=== PATIENT | female | born 1980 | race Caucasian/White ===

== ENCOUNTER → 2016-03-12 | Outpatient (CLI) | payer MEDICAID ==
[~2016-03-12] MED LIST: IBUP600T26 PO; IRON65TA PO; PERC5TAB6 PO; PREN1TAB11 PO; TYLE500T78 PO; VITAPRTA PO
[2016-03-12 12:09] LABS: BASO % 0.5 % (0.0-1.0); EOS # 0.2 K/mm3 (0.0-0.50); EOS % 2.9 % (0.0-3.0); LARGE UNSTAINED CELL # 0.1 K/mm3 (0.0-0.4); LARGE UNSTAINED CELL % 1.8 % (0.0-4.0); LYMPH % 32.9 % (24.0-44.0); MEAN CORPUSCULAR HEMOGLOBIN 24.6 pg (27.0-33.0); MEAN CORPUSCULAR VOLUME 79.2 fl (80.0-96.0); MONO # 0.3 K/mm3 (0.0-0.8); MONO % 5.6 % (0.0-5.0); NEUTROPHILS # 3.3 K/mm3 (1.8-7.7); NEUTROPHILS % 56.3 % (36.0-66.0); PLATELET COUNT, AUTOMATED 194 k/mm3 (150-450); WHITE BLOOD COUNT 5.9 K/mm3 (4.0-10.0)
[2016-03-12 13:56] LABS: CONTROL LINE INT CTR LINE PRESENT; HIV SCRN NEGATIVE (NEGATIVE); HIV SCRN1 NEGATIVE (NEGATIVE)
[2016-03-13 09:37] LABS: HBsAg Prenatal NEGATIVE (NEGATIVE)
== END ==
LOC: M LAB 11:08
PROVIDERS: ATTEND Advanced Practice Midwife
DX: Z34.81 Encounter for supervision of other normal pregnancy, first trimester (principal)

== ENCOUNTER → 2016-05-22 | Outpatient (CLI) | payer MEDICAID ==
--- NOTE | 2016-05-22 11:54 | REP ---
OBSTETRIC SONOGRAPHY: HISTORY: Supervision of for anatomy, closed cervical length. For obstetric history. FINDINGS: Scanning through the gravid uterus demonstrates a viable single intrauterine gestation in a cephalic lie. motion is observed and heart rate is recorder 150 beats per minute. Posterior grade 0 placenta is seen without evidence of previa. Amniotic fluid is subjectively normal. Closed cervical length is measured 5.6 cm trans vaginally . No extrauterine abnormality is observed. There is a suggestion of a small fibroid anteriorly in the uterine myometrium 1.5 x 1.2 x 0.8 cm in diameter. There is a anterior myometrial contraction seen during examination. The posterior placenta is seen extending to the internal cervical os on transvaginal imaging. No evidence of vasa previa . No anomaly is seen. The following anatomic structures were less than optimally visualized due to position: cerebellum and posterior fossa, face and profile, lungs, four-chamber heart with left and right ventricular outflow tract views, kidneys, spine. The following additional anatomic structures are identified and felt to be unremarkable: cranium, choroid plexus, cavum, diaphragm, left-sided stomach, abdominal wall cord insertion, three-vessel umbilical cord, urinary bladder, upper and lower extremities. Biometry Chart: BPD 3.3 cm = 16 weeks 3 days HC 11.9 cm = 15 week 6 days AC 10.6 cm = 16 weeks 4 days FL 1.9 cm = 15 weeks 4 days HL 2.0 cm = 15 week 6 days HC/AC ratio normal 1.12. Cephalic index normal 0.80. Estimated weight 142 grams, 0 pounds 5 ounces, 29th percentile for 16 weeks 3 days. IMPRESSION: 1. Viable single intrauterine gestation is 16 weeks 0 days by today's composite sonographic criteria. anatomic survey is incomplete due to lie and early gestational age. OLIVIA by today's sonography November 06, 2016. 2. Marginal posterior placenta previa configuration on transvaginal sonography. 3. 1.5 cm anterior uterine fibroid. Signed by Favian Copeland MD 05/22/2016 06:19 P
== END ==
LOC: M RAD 09:05
PROVIDERS: ATTEND Advanced Practice Midwife
DX: O09.291 Supervision of pregnancy with other poor reproductive or obstetric history, first trimester (principal)

== ENCOUNTER → 2016-06-05 | Outpatient (CLI) | payer MEDICAID ==
--- NOTE | 2016-06-05 17:06 | REP ---
Clinical: Anatomical evaluation. Comparison: 05/22/2016 . Findings: Examination demonstrates a single live intrauterine in cephalic presentation. motion is identified by technologist. Placenta is noted posteriorly and grade 0 without evidence for placenta previa or abruption and measures 2.6 cm from the internal os. Amniotic fluid volume is normal. Cervix measures 3.6 cm in length and appears closed. 1.4 cm anterior intramural fibroid is again identified and 4.6 cm posterior fibroid versus contraction is noted on current examination (likely contraction as this was not identified on prior exam). 14 x 7 x 15 mm hyperechoic area adjacent to the internal os may represent small clot. Gestational age by LMP 18 weeks 3 days with OLIVIA 11/03/2016 . Gestational age by current measurements 18 weeks 1 day with OLIVIA 11/05/2016 . FHR equals 163 beats per minute. BPD 3.8 cm 17 weeks 3 days HC 15.3 cm 18 weeks 2 days AC 12.8 cm 18 weeks 2 days FL 2.7 cm 18 weeks 2 days HL 2.6 cm 18 weeks 2 days HC/AC ratio 1.20 Estimated weight 233 grams ( 42nd percentile). Anatomical assessment demonstrates normal structures including cranium, choroid plexus, cavum, diaphragm, stomach, cord insertion/three-vessel cord, bladder, and spine. Limited evaluation of the posterior fossa, facial features, heart/ventricular outflow tracts, kidneys, and extremities due to positioning. Impression: 1. Single live intrauterine in cephalic presentation demonstrating appropriate interval growth. 2. Posterior placenta without evidence for placenta previa 2.6 cm from the closed internal os. 3. Cervix measures 3.6 cm in length. 4. Stable anterior fibroid and fibroid versus contraction noted posteriorly. 5. Anatomical assessment is suboptimal and requires reevaluation/follow-up. Signed by Ritchie Munroe MD 06/05/2016 04:57 P
== END ==
LOC: M RAD 15:38
PROVIDERS: ATTEND Advanced Practice Midwife
DX: O09.291 Supervision of pregnancy with other poor reproductive or obstetric history, first trimester (principal); Z3A.18 18 weeks gestation of pregnancy

== ENCOUNTER → 2016-06-20 | Outpatient (CLI) | payer OTHER ==
--- NOTE | 2016-06-20 12:19 | REP ---
OB ULTRASOUND: Real-time sonographic evaluation of the gravid uterus performed utilizing transabdominal and endovaginal technique. There is a single living intrauterine gestation with an estimated gestational age of 20 weeks 4 days, EDC 11/03/2016. Today's measurements indicate appropriate growth. Biometry and Growth: BPD 46 mm = 19 weeks 5 days, 28th percentile HC 181 mm = 23 weeks 3 days, 46th percentile AC 150 mm = 20 weeks 2 days, 42nd percentile FL 32 mm = 20 weeks 0 days, 37th percentile HC/AC ratio 1.20 within normal range. Estimated weight 338 grams 33rd percentile. SEEN/GROSSLY UNREMARKABLE Lateral ventricles Yes Posterior fossa Yes Upper lip Yes Four-chamber heart Yes LVOT Yes RVOT Yes Stomach Yes Cord insertion Yes Three vessel cord Yes Kidneys Yes Bladder Yes Spine No Cervical length: Closed and measures 3.7 cm in length. heart rate: 150 beats per minute. position: Variable. Placenta: Posterior and grade 0 with no previa or abruption. Amniotic fluid: Within normal limits. Signed by Alejandro Kapoor MD 06/20/2016 12:59 P
== END ==
LOC: M RAD 09:01
PROVIDERS: ATTEND Advanced Practice Midwife
DX: Z36 Encounter for antenatal screening of mother (principal); Z3A.20 20 weeks gestation of pregnancy

== ENCOUNTER → 2016-08-09 | Outpatient (CLI) | payer MEDICAID ==
[2016-08-09 09:41] LABS: MEAN CORPUSCULAR HEMOGLOBIN 26.8 pg (27.0-33.0); MEAN CORPUSCULAR HGB CONC 32.4 g/dl (32.0-36.5); MEAN CORPUSCULAR VOLUME 82.5 fl (80.0-96.0); RED CELL DISTRIBUTION WIDTH 15.2 % (11.5-14.5); WHITE BLOOD COUNT 12.6 K/mm3 (4.0-10.0)
== END ==
LOC: M LAB 09:14
PROVIDERS: ATTEND Advanced Practice Midwife
DX: Z34.82 Encounter for supervision of other normal pregnancy, second trimester (principal)

== ENCOUNTER → 2016-09-13 | Outpatient (CLI) | payer MEDICAID, OTHER ==
[~2016-09-13] MED LIST changes: +IBUP-1022 PO; -IBUP600T26 PO; +PERC5TAB12 PO; -PERC5TAB6 PO
--- NOTE | 2016-09-13 08:36 | REP ---
Clinical: Anatomical evaluation. Gestational diabetes. Comparison: 06/20/2016 . Findings: Examination demonstrates a single live intrauterine in cephalic presentation. motion is identified by technologist. Placenta is noted posteriorly and grade zero without evidence for placenta previa or abruption. Amniotic fluid volume is normal. No evidence for nuchal cord. Gestational age by LMP 32 weeks 5 days with OLIVIA 11/03/2016 . Gestational age by current measurements 32 weeks 4 days with OLIVIA 11/04/2016 . FHR equals 119 beats per minute. Estimated weight 2069 grams ( 47th percentile). Amniotic fluid index =12.6 cm (8.4 - 24.4). SD ratio 2.16 = (2.15 - 3.15). Anatomical assessment demonstrates normal structures including cranium, lungs, four-chamber heart/ left ventricular outflow tract, diaphragm, stomach, cord insertion/three-vessel cord, kidneys/bladder, spine, and extremities. Impression: 1. Single live advanced gestation in cephalic presentation demonstrating appropriate interval growth. 2. No gross abnormalities are identified. Signed by Ritchie Munroe MD 09/13/2016 08:27 A
== END ==
LOC: M RAD 06:27
PROVIDERS: ATTEND Obstetrics & Gynecology
DX: Z36 Encounter for antenatal screening of mother (principal); Z3A.32 32 weeks gestation of pregnancy

== ENCOUNTER → 2016-10-07 | Outpatient (REF) | payer OTHER | LOC: M LAB REF 17:15 | PROVIDERS: ATTEND Advanced Practice Midwife | DX: Z34.83 Encounter for supervision of other normal pregnancy, third trimester (principal) ==

== ENCOUNTER → 2016-10-09 | Outpatient (CLI) | payer OTHER ==
--- NOTE | 2016-10-09 10:05 | REP ---
LIMITED OB ULTRASOUND WITH BIOPHYSICAL PROFILE AND GROWTH: 10/09/2016. Comparison: 09/13/2016, 06/20/2016. Clinical history: Gestational diabetes. Based on initial scan she would be 36 weeks with , EDC 11/06/2016, by LMP EDC 11/03/2016. There is a single intrauterine gestation in vertex position with a closed 4.1 cm long cervix. There is a posterior grade 1 placenta without previa or abruption. The amniotic fluid volume is visually normal index measurement is 12 cm with a normal range 7.6 - 24.7. Largest of four fluid pockets is 3.5 cm. Mid cord umbilical artery Doppler shows resistive index of 0.53 and an S/D ratio with normal forward diastolic flow 2.14, normal. biometry: BPD 8.9 cm = 36 weeks HC 32.7 cm = 37 weeks 1 day AC 32.1 cm = 36 weeks FL 6.8 cm = 35 weeks 1 day HL 6 cm = 34 weeks 4 days This give the average ultrasound age 35 weeks 5 days with EDC 11/08/2016. Estimated weight 2799 grams or 6 pounds 2 ounces which is 44th percentile for dating based on LMP. This is normal interval growth. All measurement ratios are in the normal range. heart rate 144. Anatomy structures visible on this study include the cranial vault, lateral ventricles, choroid plexus and cavum septum pellucidum. The lungs, diaphragm, left-sided stomach bubble, three-vessel cord, kidneys, bladder and spine were also grossly unremarkable. All of the structures not seen have previously been evaluated. Biophysical profile Breathing 2. Movement 2. Tone 2. AFV 2. Impression: 1. Single intrauterine gestation in vertex presentation with a closed 4.1 cm long cervix, posterior grade 1 placenta without previa or abruption. This is a normal amniotic fluid volume and index. 2. Normal cord Doppler. 3. Normal interval growth with concordant size and dates. 4. Biophysical profile score 8/8. Signed by Ted Morgan MD 10/09/2016 07:03 P
== END ==
LOC: M RAD 07:21
PROVIDERS: ATTEND Advanced Practice Midwife
DX: Z36 Encounter for antenatal screening of mother (principal); O24.415 Gestational diabetes mellitus in pregnancy, controlled by oral hypoglycemic drugs; Z3A.35 35 weeks gestation of pregnancy

== ENCOUNTER → 2016-10-16 | Outpatient (CLI) | payer OTHER ==
--- NOTE | 2016-10-16 12:07 | REP ---
OB ULTRASOUND, BIOPHYSICAL PROFILE: Real-time sonographic evaluation of the gravid uterus is performed utilizing transabdominal technique. There is a single living intrauterine gestation. The estimated gestational age based on LMP is 37 weeks 5 days, EDC 11/01/2016. heart rate 153 beats per minute. Amniotic fluid within normal limits, SAMANTHA is 17.7 within normal range of 7.4 to 24.1. Biophysical profile score is 8 out of 8. S/D ratio is 1.64 within normal range. RI is 0.39 is below the normal range of 0.59 to 0.75. position vertex. Placenta is posterior with no previa or abruption and grade 1. IMPRESSION: Biophysical profile score 8 out of 8. Signed by Alejandro Kapoor MD 10/16/2016 04:57 P
== END ==
LOC: M RAD 10:04
PROVIDERS: ATTEND Advanced Practice Midwife
DX: O24.415 Gestational diabetes mellitus in pregnancy, controlled by oral hypoglycemic drugs (principal); O09.291 Supervision of pregnancy with other poor reproductive or obstetric history, first trimester; Z3A.37 37 weeks gestation of pregnancy

== ENCOUNTER 2016-10-18 05:44 | Inpatient (IN) | payer OTHER ==
[2016-10-18] VITALS (26 sets, daily range): BP systolic 102–149; BP diastolic 55–87
[~2016-10-18] VITALS: Ht 167.6 cm; Wt 106.0 kg
[2016-10-18] MEDS ORDERED: PENICILLIN G POTASSIUM IV 5 MU in D5W MINI-BAG PLUS 100 ML IV STA (06:19)
[2016-10-18] MEDS ORDERED: LR 1,000 ML IV SCH (06:22)
[2016-10-18] MEDS ORDERED: OXYTOCIN DRIP 30 UNITS in APPROPRIATE DILUENT 1 EA IV SCH (06:30)
[2016-10-18 06:58] LABS: MEAN CORPUSCULAR HEMOGLOBIN 23.6 pg (27.0-33.0); MEAN CORPUSCULAR HGB CONC 31.5 g/dl (32.0-36.5); MEAN CORPUSCULAR VOLUME 74.9 fl (80.0-96.0); RED CELL DISTRIBUTION WIDTH 16.1 % (11.5-14.5); WHITE BLOOD COUNT 8.8 K/mm3 (4.0-10.0)
--- NOTE | 2016-10-18 08:06 | HPE ---
DATE OF ADMISSION: 10/18/2016 HISTORY OF PRESENT ILLNESS: A 36-year-old 4, para 2-0-1-2 female at 37 and 5/7 weeks gestation by last menstrual period (LMP) consistent with seven-week ultrasound, estimated date of confinement (EDC) 11/03/2016, who presents with a gush of bloody fluid at 5 a.m. on the morning of admission. She continued to leak bloody fluid and made her way to the hospital. Contractions are mild. movement has been decreased over the last several days, and has remained unchanged. COURSE: The patient initiated care at seven weeks gestation on 03/21/2016. Her first-trimester blood pressure was 118/80, weight 223 pounds. She started [place] injections during due to a history of previable labor with her prior . She was diagnosed with gestational diabetes and was treated with metformin 500 mg daily. OBSTETRICAL HISTORY: 1. August 1999, 40-week vaginal delivery of 7 pound 12 ounce female . 2. 2000, 40-week vaginal delivery of 8 pound 2 ounce male. 3. 2015, 18-week vaginal delivery premature rupture of membranes (p-PROM). MEDICAL HISTORY: Obesity. SURGICAL HISTORY: 1. Gastric bypass 2011. 2. Laparoscopic ovarian cystectomy in 2016, during . ALLERGIES: None. SOCIAL HISTORY: The patient is . She denies cigarettes, alcohol or drug use. Lives in [place]. FAMILY HISTORY: Noncontributory. PHYSICAL EXAMINATION: VITAL SIGNS: 128/80, pulse 80, weight 242 pounds. GENERAL: She is in no apparent distress. HEAD/NECK: Exam normal. LUNGS: Clear. HEART: Regular rate and rhythm. ABDOMEN: Nontender. Gravid. heart tones are category one. Contractions are irregular. STERILE VAGINAL EXAM: She is grossly ruptured with bloody fluid present. She is positive Nitrazine and positive ferning. She is 4 cm, 80% effaced, -1 station, vertex. EXTREMITIES: Nontender. LABORATORY DATA: Blood type A positive. Rubella immune, RPR nonreactive. Hepatitis B and C negative. HIV negative. GBS positive. ASSESSMENT: A 36-year-old 4, para 2-0-1-2 female at 37 and 5/7 weeks gestation, with gestational diabetes, presents with spontaneous rupture of membranes, large amount of blood mixed with amniotic fluid and suggestive of possible placental abruption. PLAN: Admit for labor augmentation as well as antibiotics for group B streptococcus (GBS) positive status.
[2016-10-18] MEDS ORDERED: FENTANYL 2MCG/ML ROPIVACAINE 0.2% IN 0.9% NACL 200ML IVBAG As Ordered ONE (08:13)
[2016-10-18] MEDS ORDERED: NALOXONE INJ 0.4 MG/1 ML VIAL (J2310) IV PRN (09:30)
[2016-10-18] MEDS ORDERED: EPIDURAL/PCA KEYS XX PRN (09:30)
[2016-10-18] MEDS ORDERED: ONDANSETRON 4MG/2ML VIAL (J2405) IV PRN (09:30)
[2016-10-18] MEDS ORDERED: LACTATED RINGER'S 1000 ML IV PRN (09:30)
[2016-10-18] MEDS ORDERED: FENTANYL/ROPIVACAINE/NACL BAG 200 ML EPIDURAL SCH (09:30)
[2016-10-18] MEDS ORDERED: EPIDURAL COMMENT XX SCH (09:30)
[2016-10-18] MEDS ORDERED: diphenhydrAMINE INJ 50MG/ML VIAL (J1200) IV PRN (09:30)
[2016-10-18] MEDS ORDERED: REFRIGERATOR IV KEYS XX PRN (09:30)
[2016-10-18] MEDS ORDERED: ePHEDrine SULFATE 25 MG/5 ML(5MG/ML) SYRINGE IV PRN (09:30)
[2016-10-18] MEDS ORDERED: DIBUCAINE 1% OINTMENT 30GM TOP PRN (10:45)
[2016-10-18] MEDS ORDERED: ANUSOL HC CREAM 30GM TOP PRN (10:45)
[2016-10-18] MEDS ORDERED: MEASLES,MUMPS,RUBELLA VACCINE INJ (MMR-II) (90707) SC SCH (10:45)
[2016-10-18] MEDS ORDERED: DOCUSATE SODIUM 100 MG CAP PO PRN (10:45)
[2016-10-18] MEDS ORDERED: MOM 30ML SUSPENSION UDC PO PRN (10:45)
[2016-10-18] MEDS ORDERED: RHOGAM 300 MCG (1500 IU) INJ (J2790) IM SCH (10:45)
[2016-10-18] MEDS: IBUPROFEN 800 MG TAB PO PRN ×2 (10:59→20:16)
[2016-10-18] MEDS ORDERED: PENICILLIN G POTASSIUM IV 2.5 MU in D5W 100 ML IV SCH (11:00)
[2016-10-18] MEDS: PRENATAL VITAMINS CHEWABLE TABLET PO SCH (11:01)
[2016-10-18] MEDS: METHYLERGONOVINE MALEATE 0.2 MG TAB PO SCH ×3 (11:02→23:01)
[2016-10-18] MEDS: ACETAMINOPHEN 500 MG TAB PO PRN (20:16)
[2016-10-19] MEDS: METHYLERGONOVINE MALEATE 0.2 MG TAB PO SCH ×3 (05:00→16:45)
[2016-10-19 06:30] VITALS: BP 136/74
[2016-10-19] MEDS: IBUPROFEN 800 MG TAB PO PRN (07:02)
[2016-10-19] MEDS: ACETAMINOPHEN 500 MG TAB PO PRN (07:02)
[2016-10-19 07:15] LABS: MEAN CORPUSCULAR HEMOGLOBIN 23.6 pg (27.0-33.0); MEAN CORPUSCULAR HGB CONC 31.3 g/dl (32.0-36.5); MEAN CORPUSCULAR VOLUME 75.2 fl (80.0-96.0); RED CELL DISTRIBUTION WIDTH 16.3 % (11.5-14.5); WHITE BLOOD COUNT 10.2 K/mm3 (4.0-10.0)
[2016-10-19] MEDS: PRENATAL VITAMINS CHEWABLE TABLET PO SCH (08:39)
--- NOTE | 2016-10-19 13:24 | DN ---
DATE: 10/18/2016 Spontaneous rupture of membranes, bloody fluid at 0500 hours. Pitocin augmentation of labor. Utilized epidural for labor coping. Fully dilated 1004 hours. Large amount of bleeding during second stage. heart remained reassuring. Viable male delivered RAJEEV at 1018. Spontaneous respirations with stimulation. Transitioned on maternal abdomen. Cord doubly clamped and cut by dad once pulsations ceased. scores of 9 and 9. Placenta Santos intact with three-vessel cord at 1022. Membranes had completely shredded off the placental disk prior to delivery. Placenta and membranes sent to pathology. Fundus firmed with massage and IV Pitocin. Estimated blood loss 600 mL. Perineum intact. , 3430 grams, 7 pounds 9 ounces. Sponge, sharp and instrument count correct. Mother and baby doing well.
[2016-10-19 18:01] VITALS: BP 132/67
[2016-10-19] MEDS ORDERED: METHYLERGONOVINE MALEATE 0.2 MG TAB PO PRN (20:00)
[2016-10-20 06:15] VITALS: BP 119/69
[2016-10-20] MEDS: IBUPROFEN 800 MG TAB PO PRN (06:21)
[2016-10-20] MEDS: PRENATAL VITAMINS CHEWABLE TABLET PO SCH (08:27)
== END 2016-10-20 14:00 | disposition home or self-care (01) | DRG 560 ==
LOC: M LDO 05:44 → M LDI 06:15 → M OBS 13:14
PROVIDERS: ADMIT Specialist; ATTEND Specialist
PROC: 10E0XZZ Delivery of Products of Conception, External Approach (ICD-10-PCS; principal; 2016-10-18)
DX: O24.425 Gestational diabetes mellitus in childbirth, controlled by oral hypoglycemic drugs (principal); E66.9 Obesity, unspecified; Z37.0 Single live birth; Z3A.37 37 weeks gestation of pregnancy; Z87.51 Personal history of pre-term labor; O99.820 Streptococcus B carrier state complicating pregnancy; O99.214 Obesity complicating childbirth; O09.523 Supervision of elderly multigravida, third trimester

== ENCOUNTER → 2017-04-03 | Outpatient (CLI) | payer OTHER | LOC: M OUTALCOH 10:16 | DX: Z03.89 Encounter for observation for other suspected diseases and conditions ruled out (principal) ==

== ENCOUNTER → 2018-01-13 | Outpatient (REF) | payer BC ==
[2018-01-14 11:42] LABS: BASO # 0.1 10^3/uL (0.0-0.2); BASO % 0.5 % (0.0-1.0); EOS # 0.2 10^3/uL (0.0-0.50); EOS % 1.6 % (0.0-3.0); HEMATOCRIT 33.4 % (36.0-47.0); HEMOGLOBIN 9.4 g/dl (12.0-15.5); IMMATURE GRANULOCYTE % 0.3 % (0-3.0); LYMPH # 2.7 10^3/uL (1.5-4.5); LYMPH % 23.5 % (24.0-44.0); MEAN CORPUSCULAR HGB CONC 28.1 g/dl (32.0-36.5); MEAN CORPUSCULAR VOLUME 71.2 fl (80.0-96.0); MONO # 0.6 10^3/uL (0.0-0.8); MONO % 4.9 % (0.0-5.0); NEUTROPHILS % 69.2 % (36.0-66.0); PLATELET COUNT, AUTOMATED 280 10^3/uL (150-450); RED BLOOD COUNT 4.69 10^6/uL (4.00-5.40); RED CELL DISTRIBUTION WIDTH 16.2 % (11.5-14.5); WHITE BLOOD COUNT 11.5 10^3/uL (4.0-10.0)
[2018-01-14 12:03] LABS: ERYTHROCYTE SEDIMENTATION RATE 36 mm/hr (0-20)
[2018-01-14 12:07] LABS: ALBUMIN 3.9 GM/DL (3.2-5.2); ALBUMIN/GLOBULIN RATIO 1.08 (1.00-1.93); ALKALINE PHOSPHATASE 116 U/L (45-117); ALT/SGPT 21 U/L (12-78); ANION GAP 7 MEQ/L (8-16); AST/SGOT 17 U/L (7-37); BILIRUBIN,TOTAL 0.2 MG/DL (0.2-1.0); BLOOD UREA NITROGEN 15 MG/DL (7-18); CALCIUM LEVEL 8.7 MG/DL (8.5-10.1); CARBON DIOXIDE LEVEL 27 MEQ/L (21-32); CHLORIDE LEVEL 106 MEQ/L (98-107); CHOLESTEROL LEVEL 154 MG/DL (<200); CHOLESTEROL RISK RATIO 3.208 (<5); CREATININE FOR GFR 0.68 MG/DL (0.55-1.30); FERRITIN 3 NG/ML (8-252); FOLATE 12.5 NG/ML (>5.4); GLOMERULAR FILTRATION RATE > 60.0 (>60); GLUCOSE, FASTING 147 MG/DL (70-100); HDL CHOLESTEROL 48 MG/DL (>40); IRON (FE) 18 UG/DL (50-170); LDL CHOLESTEROL 91 MG/DL (<100); MAGNESIUM LEVEL 2.1 MG/DL (1.8-2.4); NON-HDL-C 106 MG/DL; PERCENT SATURATION 3.2 % (13.2-45.0); POTASSIUM SERUM 4.3 MEQ/L (3.5-5.1); RHEUMATOID FACTOR QUANT < 10.0 IU/ML (<15.0); SODIUM LEVEL 140 MEQ/L (136-145); TOTAL 25(OH) VITAMIN D 11.3 NG/ML (30.0-100.0); TOTAL IRON BINDING CAPACITY 558 UG/DL (250-450); TOTAL PROTEIN 7.5 GM/DL (6.4-8.2); TRIGLYCERIDES LEVEL 77 MG/DL (<150); VITAMIN B12 LEVEL 724 PG/ML (247-911)
[2018-01-14 12:08] LABS: FREE THYROXINE INDEX 2.2 % (1.3-4.8); T UPTAKE 31 % (30-39); THYROXINE (T4) 7.2 UG/DL (4.5-12.0)
[2018-01-16 00:07] LABS: ANA (HEP2) Negative (.); Lyme Disease IgG/IgM Antibodie <0.91 ISR (0.00-0.90); Lyme Disease IgM Ab Quantitati <0.80 index (0.00-0.79)
== END ==
LOC: M SFHCCLAY 14:28
DX: Z98.84 Bariatric surgery status (principal); G56.03 Carpal tunnel syndrome, bilateral upper limbs; Z13.6 Encounter for screening for cardiovascular disorders
CPT/HCPCS: 82746

== ENCOUNTER → 2018-02-26 | Outpatient (REF) | payer BC ==
[2018-02-26 11:36] LABS: HEMOGLOBIN 8.7 g/dl (12.0-15.5); MEAN CORPUSCULAR HEMOGLOBIN 19.5 pg (27.0-33.0); MEAN CORPUSCULAR HGB CONC 27.2 g/dl (32.0-36.5); MEAN CORPUSCULAR VOLUME 71.6 fl (80.0-96.0); PLATELET COUNT, AUTOMATED 245 10^3/uL (150-450); RED BLOOD COUNT 4.47 10^6/uL (4.00-5.40); WHITE BLOOD COUNT 7.1 10^3/uL (4.0-10.0)
[2018-02-26 11:51] LABS: HEMOGLOBIN A1c 7.9 %
[2018-02-26 12:04] LABS: PERCENT SATURATION 4.3 % (13.2-45.0)
== END ==
LOC: M SFHCCLAY 07:40
PROVIDERS: ATTEND Nurse Practitioner Family
DX: D64.9 Anemia, unspecified (principal); R73.09 Other abnormal glucose

== ENCOUNTER → 2019-06-14 | Outpatient (REF) | payer BC ==
[2019-06-14 14:01] LABS: HEMATOCRIT 40.9 % (36.0-47.0); HEMOGLOBIN 12.5 g/dl (12.0-15.5); MEAN CORPUSCULAR HEMOGLOBIN 23.9 pg (27.0-33.0); MEAN CORPUSCULAR HGB CONC 30.6 g/dl (32.0-36.5); MEAN CORPUSCULAR VOLUME 78.4 fl (80.0-96.0); PLATELET COUNT, AUTOMATED 259 10^3/uL (150-450); RED BLOOD COUNT 5.22 10^6/uL (4.00-5.40); WHITE BLOOD COUNT 7.4 10^3/uL (4.0-10.0)
[2019-06-14 14:04] LABS: IRON (FE) 24 UG/DL (50-170)
[2019-06-14 14:15] LABS: TOTAL 25(OH) VITAMIN D 13.3 NG/ML (30.0-100.0)
[2019-06-14 14:16] LABS: VITAMIN B12 LEVEL 715 PG/ML (247-911)
[2019-06-14 14:18] LABS: FOLATE 21.7 NG/ML (>5.4)
[2019-06-14 14:26] LABS: RUBELLA IgG QUALITATIVE IMMUNE (IMMUNE)
[2019-06-14 14:27] LABS: HEPATITIS B SURFACE ANTIGEN NEGATIVE (NEGATIVE)
[2019-06-14 14:54] LABS: HEPATITIS C VIRUS ABY INDEX 0.1 INDEX (<0.8)
[2019-06-14 14:55] LABS: HIV 1&2 SCREEN CENTAUR NEGATIVE (NEGATIVE)
[2019-06-15 13:09] LABS: CHLAMYDIA DNA AMPLIFICATION NEGATIVE (NEGATIVE); GC DNA AMPLIFICATION NEGATIVE (NEGATIVE)
== END ==
LOC: M PLALAB 08:41
PROVIDERS: ATTEND Advanced Practice Midwife
DX: O09.521 Supervision of elderly multigravida, first trimester (principal)

== ENCOUNTER → 2019-07-13 | Outpatient (REF) | payer BC ==
[2019-07-13 12:15] LABS: HEMOGLOBIN A1c 9.3 %
== END ==
LOC: M PLALAB 08:58
PROVIDERS: ATTEND Specialist
DX: E11.9 Type 2 diabetes mellitus without complications (principal)

== ENCOUNTER → 2020-01-11 | Outpatient (REF) | payer BC | LOC: M PLALAB 11:01 | PROVIDERS: ATTEND Specialist | DX: N92.6 Irregular menstruation, unspecified (principal) ==

== ENCOUNTER → 2020-01-13 | Outpatient (CLI) | payer BC | LOC: M PLALAB 09:24 | PROVIDERS: ATTEND Specialist | DX: N92.6 Irregular menstruation, unspecified (principal) ==

== ENCOUNTER → 2020-01-17 | Outpatient (REF) | payer BC | LOC: M PLALAB 08:18 | PROVIDERS: ATTEND Specialist | DX: N92.6 Irregular menstruation, unspecified (principal) ==

== ENCOUNTER → 2020-01-21 | Outpatient (REF) | payer BC | LOC: M PLALAB 12:38 | PROVIDERS: ATTEND Specialist | DX: N92.6 Irregular menstruation, unspecified (principal) ==

== ENCOUNTER 2022-10-03 09:18 | Outpatient (CLI) | payer OTHER ==
[~2022-10-03] VITALS: Ht 167.6 cm; Wt 93.4 kg
[~2022-10-03 09:18] MED LIST changes: +ACETAMINOPHEN 500 MG TAB PO ONE; +IRON SUCROSE 500 MG in NS 250 ML OVER 4 HRS IV ONE; +diphenhydrAMINE 50MG CAP PO ONE
[2022-10-03 09:30] VITALS: BP 117/65; O2SAT 99
[2022-10-03 10:30] VITALS: BP 109/61; O2SAT 98
[2022-10-03 11:30] VITALS: BP 105/59; O2SAT 98
[2022-10-03 13:50] VITALS: BP 145/82; O2SAT 98
== END 2022-10-03 14:00 | disposition home or self-care (01) ==
LOC: M INFU 09:18
PROVIDERS: ATTEND Advanced Practice Midwife
DX: D64.9 Anemia, unspecified (principal)
CPT/HCPCS: 96365; 96366; J1756

== ENCOUNTER → 2022-10-14 | Outpatient (REF) | payer OTHER ==
[~2022-10-14] MED LIST changes: -ACETAMINOPHEN 500 MG TAB PO ONE; -IRON SUCROSE 500 MG in NS 250 ML OVER 4 HRS IV ONE; -diphenhydrAMINE 50MG CAP PO ONE
== END ==
LOC: M PLALAB 13:27
PROVIDERS: ATTEND Obstetrics & Gynecology
DX: O09.521 Supervision of elderly multigravida, first trimester (principal); Z3A.00 Weeks of gestation of pregnancy not specified

== ENCOUNTER 2022-11-01 09:44 | Observation (INO) | payer OTHER ==
[2022-11-01] VITALS (9 sets, daily range): BP systolic 117–138; BP diastolic 55–76; TEMP 98; O2SAT 97
[~2022-11-01] VITALS: Ht 167.6 cm; Wt 94.5 kg
[2022-11-01] MEDS ORDERED: INSUR50VL SC ×2 (10:11→10:14)
[2022-11-01] MEDS ORDERED: NOVOINJ13 SC ×3 (10:14)
[2022-11-01] MEDS ORDERED: HOME MED LIST COMPLETE! XX SCH (10:15)
[2022-11-01] MEDS ORDERED: RHOGAM 300MCG (1500IU) INJ IM SCH (10:20)
[2022-11-01] MEDS ORDERED: INSURSD SC (10:22)
[2022-11-01] MEDS ORDERED: ACETAMINOPHEN 500 MG TAB PO PRN (11:05)
[2022-11-01 12:34] LABS: HEMATOCRIT 36.4 % (36.0-47.0); MEAN CORPUSCULAR HEMOGLOBIN 22.4 pg (27.0-33.0); MEAN CORPUSCULAR HGB CONC 30.2 g/dl (32.0-36.5); MEAN CORPUSCULAR VOLUME 74.1 fl (80.0-96.0); PLATELET COUNT, AUTOMATED 206 10^3/uL (150-450); RED BLOOD COUNT 4.91 10^6/uL (4.00-5.40); WHITE BLOOD COUNT 18.5 10^3/uL (4.0-10.0)
[2022-11-01] MEDS ORDERED: AMPICILLIN SOD/SULBACTAM SOD 3 GM in D5W MINI-BAG PLUS 100 ML IV ONE (16:25)
[2022-11-01] MEDS ORDERED: fentaNYL 100 MCG/2 ML INJECTION IV PRN (16:40)
[2022-11-01] MEDS ORDERED: ONDANSETRON 4MG 2ML VIAL IV PRN (16:40)
[2022-11-01] MEDS ORDERED: MEPERIDINE 25 MG/ML 1ML VIAL IV PRN (16:40)
[2022-11-01] MEDS ORDERED: oxyCODONE 5MG TAB PO PRN (16:40)
[2022-11-01] MEDS ORDERED: HYDROMORPHONE HCL 0.5 MG/ 0.5 ML SYRINGE IV PRN (16:40)
[2022-11-01] MEDS ORDERED: LIDOCAINE 1% SDV 30ML VIAL As Ordered ONE (16:58)
[2022-11-01] MEDS ORDERED: fentaNYL 100 MCG/2 ML INJECTION As Ordered ONE (17:02)
[2022-11-01] MEDS ORDERED: MIDAZOLAM INJ 2MG/2ML VIAL As Ordered ONE (17:02)
[2022-11-01] MEDS ORDERED: propofoL 200 MG/20 ML VIAL As Ordered ONE (17:03)
[2022-11-01] MEDS ORDERED: ONDANSETRON 4MG 2ML VIAL As Ordered ONE (17:04)
[2022-11-01] MEDS ORDERED: LIDOCAINE 2% 100MG/5ML SDV (FOR ANES.) As Ordered ONE (17:04)
[2022-11-01] MEDS ORDERED: ACETAMINOPHEN 1000MG 100ML IV BAG As Ordered ONE (17:53)
[2022-11-01] MEDS ORDERED: KETOROLAC 60MG 2ML VIAL As Ordered ONE (17:54)
[2022-11-01] MEDS ORDERED: METHYLERGONOVINE MALEATE 0.2MG/ML 1ML VIAL As Ordered ONE (17:58)
== END 2022-11-01 20:30 | disposition home or self-care (01) ==
LOC: M LDO 09:44 → M LDI 09:45
PROVIDERS: ADMIT Advanced Practice Midwife; ATTEND Advanced Practice Midwife
DX: O73.0 Retained placenta without hemorrhage (principal); O02.1 Missed abortion; E11.9 Type 2 diabetes mellitus without complications; Z98.84 Bariatric surgery status
CPT/HCPCS: 59812; 76856; 81229; 85027; 86850; 86900; 86901; 87635; 88300; 96374; G0463; J0131; J0295; J1100; J1885; J2210; J2250; J2405; J3010; S0191

== ENCOUNTER → 2023-07-30 | Outpatient (REF) | payer OTHER ==
[~2023-07-30] MED LIST changes: +INSU100V19 SC; +INSUR50VL SC; +NOVOINJ13 SC
[2023-07-30 17:22] LABS: IRON (FE) 9 UG/DL (50-170); PERCENT SATURATION 2.3 % (13.2-45.0); TOTAL IRON BINDING CAPACITY 392 UG/DL (250-425)
[2023-07-30 17:33] LABS: VITAMIN B12 LEVEL > 2000 PG/ML (211-911)
[2023-07-30 17:44] LABS: ALBUMIN 3.2 G/DL (3.2-5.2); ALKALINE PHOSPHATASE 84 U/L (46-116); ALT/SGPT 32 U/L (7.0-40); AST/SGOT 27 U/L (<34); BILIRUBIN,TOTAL 0.5 MG/DL (0.3-1.2); BLOOD UREA NITROGEN 10 MG/DL (9-23); CALCIUM LEVEL 8.6 MG/DL (8.5-10.1); CARBON DIOXIDE LEVEL 27 MMOL/L (20-31); CHLORIDE LEVEL 103 MMOL/L (98-107); CHOLESTEROL LEVEL 119 MG/DL (<200); CHOLESTEROL RISK RATIO 3.15 (<5); CREATININE FOR GFR 0.55 MG/DL (0.55-1.30); GLOMERULAR FILTRATION RATE > 60.0 (>58); GLUCOSE, FASTING 331 MG/DL (60-100); HDL CHOLESTEROL 37.7 MG/DL (>40); LDL CHOLESTEROL 63.9 MG/DL (<100); NON-HDL-C 81.3 MG/DL; POTASSIUM SERUM 3.6 MMOL/L (3.5-5.1); SODIUM LEVEL 138 MMOL/L (136-145); TOTAL PROTEIN 6.3 G/DL (5.7-8.2); TRIGLYCERIDES LEVEL 87 MG/DL (<150)
[2023-07-30 17:49] LABS: THYROID STIMULATING HORMONE 0.523 uIU/ML (0.55-4.78)
[2023-07-30 17:50] LABS: FREE T4 0.83 NG/DL (0.89-1.76)
[2023-07-30 18:08] LABS: HEMOGLOBIN A1c 10.9 % (4.0-6.0)
== END ==
LOC: M SFHCCLAY 11:40
PROVIDERS: ATTEND Nurse Practitioner Family
DX: E11.9 Type 2 diabetes mellitus without complications (principal); Z98.84 Bariatric surgery status

== ENCOUNTER 2023-08-26 07:04 | Outpatient (CLI) | payer OTHER ==
[~2023-08-26] VITALS: Ht 167.6 cm; Wt 97.7 kg
[2023-08-26] MEDS: IRON SUCROSE 25 MG in NS 23.75 ML IV ONE (08:07)
[2023-08-26] MEDS: IRON SUCROSE 475 MG in NS 250 ML IV ONE (09:11)
[2023-08-26 10:00] VITALS: BP 137/66; O2SAT 100
[2023-08-26 11:00] VITALS: BP 135/65; O2SAT 100
[2023-08-26 12:00] VITALS: BP 140/77; O2SAT 100
== END 2023-08-26 13:40 ==
LOC: M INFU 07:04
PROVIDERS: ATTEND Nurse Practitioner Family
DX: D50.9 Iron deficiency anemia, unspecified (principal)
CPT/HCPCS: 96365; 96366; J1756

== ENCOUNTER 2023-09-09 08:30 | Outpatient (CLI) | payer OTHER ==
[~2023-09-09] VITALS: Ht 167.6 cm; Wt 97.7 kg
[2023-09-09 08:45] VITALS: BP 164/80; O2SAT 98
[2023-09-09] MEDS: IRON SUCROSE 500 MG in NS 250 ML OVER 4 HRS IV ONE (08:56)
[2023-09-09 10:30] VITALS: BP 141/68; O2SAT 98
[2023-09-09 11:30] VITALS: BP 147/77; O2SAT 98
[2023-09-09 12:30] VITALS: BP 144/71; O2SAT 99
[2023-09-09 13:00] VITALS: BP 141/75; O2SAT 97
== END 2023-09-09 13:00 ==
LOC: M INFU 08:30
PROVIDERS: ATTEND Nurse Practitioner Family
DX: D50.9 Iron deficiency anemia, unspecified (principal)
CPT/HCPCS: 96365; 96366; J1756

== ENCOUNTER → 2023-09-25 | Outpatient (REF) | payer OTHER ==
[2023-09-25 11:57] LABS: BASO # 0.1 10^3/uL (0.0-0.2); BASO % 0.9 % (0.0-1.0); EOS # 0.1 10^3/uL (0.0-0.5); EOS % 1.9 % (0.0-3.0); HEMATOCRIT 43.2 % (36.0-47.0); HEMOGLOBIN 12.7 g/dl (12.0-15.5); LYMPH # 1.6 10^3/uL (1.5-5.0); LYMPH % 29.5 % (24.0-44.0); MEAN CORPUSCULAR HEMOGLOBIN 24.1 pg (27.0-33.0); MEAN CORPUSCULAR HGB CONC 29.4 g/dl (32.0-36.5); MONO # 0.3 10^3/uL (0.0-0.8); MONO % 6.3 % (2.0-8.0); NEUTROPHILS # 3.2 10^3/uL (1.5-8.5); NEUTROPHILS % 61.2 % (36.0-66.0); PLATELET COUNT, AUTOMATED 238 10^3/uL (150-450); RED BLOOD COUNT 5.27 10^6/uL (4.00-5.40); WHITE BLOOD COUNT 5.3 10^3/uL (4.0-10.0)
[2023-09-25 12:24] LABS: ALBUMIN 3.6 G/DL (3.2-5.2); ALKALINE PHOSPHATASE 59 U/L (46-116); ALT/SGPT 83 U/L (7.0-40); AST/SGOT 113 U/L (<34); BILIRUBIN,TOTAL 0.4 MG/DL (0.3-1.2); BLOOD UREA NITROGEN 9 MG/DL (9-23); CALCIUM LEVEL 9.1 MG/DL (8.5-10.1); CARBON DIOXIDE LEVEL 28 MMOL/L (20-31); CHLORIDE LEVEL 107 MMOL/L (98-107); CREATININE FOR GFR 0.58 MG/DL (0.55-1.30); FERRITIN 58.6 NG/ML (7.3-270.7); GLOMERULAR FILTRATION RATE > 60.0 (>58); GLUCOSE, FASTING 151 MG/DL (60-100); IRON (FE) 238 UG/DL (50-170); PERCENT SATURATION 55.5 % (13.2-45.0); SODIUM LEVEL 142 MMOL/L (136-145); TOTAL IRON BINDING CAPACITY 429 UG/DL (250-425); TOTAL PROTEIN 6.6 G/DL (5.7-8.2)
[2023-09-25 13:00] LABS: HEMOGLOBIN A1c 6.6 % (4.0-6.0)
== END ==
LOC: M SFHCCLAY 08:53
PROVIDERS: ATTEND Nurse Practitioner Family
DX: Z01.818 Encounter for other preprocedural examination (principal); E11.9 Type 2 diabetes mellitus without complications

== ENCOUNTER → 2023-12-23 | Outpatient (REF) | payer OTHER ==
[2023-12-23 13:44] LABS: FERRITIN 8.3 NG/ML (7.3-270.7)
[2023-12-23 13:47] LABS: BASO # 0.1 10^3/uL (0.0-0.2); BASO % 1.1 % (0.0-1.0); EOS # 0.1 10^3/uL (0.0-0.5); EOS % 2.5 % (0.0-3.0); HEMATOCRIT 41.7 % (36.0-47.0); HEMOGLOBIN 13.4 g/dl (12.0-15.5); LYMPH # 1.8 10^3/uL (1.5-5.0); LYMPH % 32.4 % (24.0-44.0); MEAN CORPUSCULAR HEMOGLOBIN 28.5 pg (27.0-33.0); MEAN CORPUSCULAR HGB CONC 32.1 g/dl (32.0-36.5); MEAN CORPUSCULAR VOLUME 88.5 fl (80.0-96.0); MONO # 0.4 10^3/uL (0.0-0.8); MONO % 7.1 % (2.0-8.0); NEUTROPHILS # 3.2 10^3/uL (1.5-8.5); NEUTROPHILS % 56.9 % (36.0-66.0); PLATELET COUNT, AUTOMATED 219 10^3/uL (150-450); RED BLOOD COUNT 4.71 10^6/uL (4.00-5.40); WHITE BLOOD COUNT 5.6 10^3/uL (4.0-10.0)
[2023-12-23 14:08] LABS: HEMOGLOBIN A1c 7.4 % (4.0-6.0)
== END ==
LOC: M SFHCCLAY 08:18
PROVIDERS: ATTEND Nurse Practitioner Family
DX: E11.9 Type 2 diabetes mellitus without complications (principal); Z98.84 Bariatric surgery status; R03.0 Elevated blood-pressure reading, without diagnosis of hypertension; D50.9 Iron deficiency anemia, unspecified

== ENCOUNTER → 2024-01-16 | Outpatient (CLI) | payer OTHER | LOC: M WHC 10:40 | PROVIDERS: ATTEND Nurse Practitioner Family | DX: N94.6 Dysmenorrhea, unspecified (principal); D25.9 Leiomyoma of uterus, unspecified; N83.202 Unspecified ovarian cyst, left side ==

== ENCOUNTER → 2024-06-17 | Outpatient (REF) | payer OTHER ==
[2024-06-17 18:55] LABS: BASO # 0.1 10^3/uL (0.0-0.2); EOS # 0.1 10^3/uL (0.0-0.5); EOS % 1.5 % (0.0-3.0); HEMATOCRIT 40.5 % (36.0-47.0); HEMOGLOBIN 12.1 g/dl (12.0-15.5); LYMPH # 1.3 10^3/uL (1.5-5.0); LYMPH % 17.9 % (24.0-44.0); MEAN CORPUSCULAR HEMOGLOBIN 24.3 pg (27.0-33.0); MEAN CORPUSCULAR HGB CONC 29.9 g/dl (32.0-36.5); MEAN CORPUSCULAR VOLUME 81.5 fl (80.0-96.0); MONO # 0.6 10^3/uL (0.0-0.8); MONO % 7.7 % (2.0-8.0); NEUTROPHILS # 5.2 10^3/uL (1.5-8.5); NEUTROPHILS % 71.8 % (36.0-66.0); PLATELET COUNT, AUTOMATED 281 10^3/uL (150-450); RED BLOOD COUNT 4.97 10^6/uL (4.00-5.40); WHITE BLOOD COUNT 7.3 10^3/uL (4.0-10.0)
[2024-06-17 19:07] LABS: PERCENT SATURATION 3.9 % (13.2-45.0)
[2024-06-17 19:11] LABS: FERRITIN 2.5 NG/ML (7.3-270.7)
[2024-06-17 19:35] LABS: HEMOGLOBIN A1c 7.2 % (4.0-6.0)
== END ==
LOC: M SFHCCLAY 08:30
PROVIDERS: ATTEND Nurse Practitioner Family
DX: D50.9 Iron deficiency anemia, unspecified (principal); E11.9 Type 2 diabetes mellitus without complications

== ENCOUNTER 2024-07-08 10:28 | Outpatient (CLI) | payer OTHER ==
[~2024-07-08] VITALS: Ht 167.6 cm; Wt 93.2 kg
[~2024-07-08 10:28] MED LIST changes: +ALBUTEROL SULFATE 2.5MG/0.5ML INH CONCENTRATE NEB SOLN INH PRN; +EPINEPHrine INJ 1 MG/ML 1ML AMP IM PRN; +diphenhydrAMINE 50MG/ML VIAL IV PRN; +methylPREDNISolone 125MG 2ML VIAL IV PRN
[2024-07-08 10:45] VITALS: BP 140/88; O2SAT 95
[2024-07-08] MEDS ORDERED: NS (Normal Saline) 0.9% 1,000 ML IV SCH (11:00)
[2024-07-08] MEDS: FERRIC CARBOXYMALTOSE 750 MG (VIAL MATE) IN 100ML NS IV ONE (11:04)
[2024-07-08 11:20] VITALS: BP 165/78; O2SAT 96
== END 2024-07-08 11:27 | disposition home or self-care (01) ==
LOC: M INFU 10:28
PROVIDERS: ATTEND Nurse Practitioner Family
DX: D50.1 Sideropenic dysphagia (principal)
CPT/HCPCS: 96365; J1439

== ENCOUNTER 2024-07-15 09:50 | Outpatient (CLI) | payer OTHER ==
[2024-07-15 09:00] VITALS: BP 143/78; O2SAT 98
[2024-07-15] MEDS: FERRIC CARBOXYMALTOSE 750 MG (VIAL MATE) IN 100ML NS IV ONE (09:58)
[2024-07-15 10:20] VITALS: BP 132/78; O2SAT 98
[2024-07-15] MEDS ORDERED: NS (Normal Saline) 0.9% 1,000 ML IV SCH (10:30)
== END 2024-07-15 10:25 | disposition home or self-care (01) ==
LOC: M INFU 09:50
PROVIDERS: ATTEND Nurse Practitioner Family
DX: D50.1 Sideropenic dysphagia (principal)
CPT/HCPCS: 96365; J1439

== ENCOUNTER → 2024-07-26 | Outpatient (CLI) | payer OTHER ==
[~2024-07-26] MED LIST changes: -ALBUTEROL SULFATE 2.5MG/0.5ML INH CONCENTRATE NEB SOLN INH PRN; -EPINEPHrine INJ 1 MG/ML 1ML AMP IM PRN; -diphenhydrAMINE 50MG/ML VIAL IV PRN; -methylPREDNISolone 125MG 2ML VIAL IV PRN
== END ==
LOC: M WHC 08:05
PROVIDERS: ATTEND Nurse Practitioner Family
DX: N94.6 Dysmenorrhea, unspecified (principal); D25.9 Leiomyoma of uterus, unspecified; N83.291 Other ovarian cyst, right side

== ENCOUNTER → 2024-09-23 | Outpatient (REF) | payer OTHER ==
[2024-09-26 04:23] LABS: HPV APTIMA Not Detected (Not Detected)
== END ==
LOC: M SFHCCLAY 10:04
PROVIDERS: ATTEND Nurse Practitioner Family
DX: Z12.4 Encounter for screening for malignant neoplasm of cervix (principal); R87.610 Atypical squamous cells of undetermined significance on cytologic smear of cervix (ASC-US)

== ENCOUNTER → 2024-12-21 | Outpatient (REF) | payer OTHER ==
[~2024-12-21] MED LIST changes: -IBUP-1022 PO; +IBUP600T42 PO
[2024-12-21 17:40] LABS: ESTIMATED AVERAGE GLUCOSE 148.0 MG/DL (60-110)
[2024-12-21 17:57] LABS: IRON (FE) 120 UG/DL (50-170); PERCENT SATURATION 28.1 % (13.2-45.0)
[2024-12-21 17:59] LABS: ALT/SGPT 31 U/L (7.0-40); AST/SGOT 40 U/L (<34); CALCIUM LEVEL 9.4 MG/DL (8.5-10.1); CARBON DIOXIDE LEVEL 29 MMOL/L (20-31); CHLORIDE LEVEL 102 MMOL/L (98-107); CHOLESTEROL LEVEL 157 MG/DL (<200); CHOLESTEROL RISK RATIO 2.36 (<5); CREATININE FOR GFR 0.68 MG/DL (0.55-1.30); GLOMERULAR FILTRATION RATE > 90.0 (>58); LDL CHOLESTEROL 64.5 MG/DL (<100); NON-HDL-C 90.5 MG/DL; POTASSIUM SERUM 4.9 MMOL/L (3.5-5.1); SODIUM LEVEL 142 MMOL/L (136-145); TRIGLYCERIDES LEVEL 130 MG/DL (<150)
== END ==
LOC: M SFHCCLAY 10:54
PROVIDERS: ATTEND Nurse Practitioner Family
DX: N94.6 Dysmenorrhea, unspecified (principal); E11.9 Type 2 diabetes mellitus without complications; Z98.84 Bariatric surgery status; R03.0 Elevated blood-pressure reading, without diagnosis of hypertension; D50.9 Iron deficiency anemia, unspecified

== ENCOUNTER → 2024-12-23 | Outpatient (REF) | payer OTHER ==
[2024-12-23 12:52] LABS: BASO # 0.1 10^3/uL (0.0-0.2); BASO % 0.6 % (0.0-1.0); EOS # 0.1 10^3/uL (0.0-0.5); EOS % 0.9 % (0.0-3.0); LYMPH # 2.3 10^3/uL (1.5-5.0); LYMPH % 24.1 % (24.0-44.0); MONO # 0.5 10^3/uL (0.0-0.8); MONO % 5.4 % (2.0-8.0); NEUTROPHILS # 6.6 10^3/uL (1.5-8.5); NEUTROPHILS % 68.7 % (36.0-66.0); PLATELET COUNT, AUTOMATED 234 10^3/uL (150-450)
== END ==
LOC: M SFHCCLAY 08:23
PROVIDERS: ATTEND Nurse Practitioner Family
DX: Z98.84 Bariatric surgery status (principal)